=== PATIENT | female | born 1980 | race Caucasian/White ===

== ENCOUNTER 2019-01-11 05:31 | Inpatient (IN) | payer MEDICAID ==
[2019-01-11] MEDS ORDERED: Sodium Chloride 0.9% 10 ML Syringe FLUSH PRN (06:03)
[2019-01-11] MEDS ORDERED: ceFAZolin 2 GM in Premix Bag 1 BAG IV ONE (06:03)
[2019-01-11] MEDS ORDERED: Citric Acid/Sodium Citrate Solution 30 ML Cup PO ONE (06:03)
[2019-01-11] MEDS ORDERED: Sodium Chloride 0.9% 10 ML SDV IV PRN (06:03)
[2019-01-11] MEDS ORDERED: Sodium Chloride 0.9% 2.5 ML Syringe FLUSH PRN (06:03)
[2019-01-11] MEDS: Lactated Ringers 1,000 ML IV SCH ×3 (06:10→07:55)
[2019-01-11] MEDS ORDERED: Oxytocin/0.9 % Sodium Chloride 30 UNIT/500 ML BAG IV SCH (06:15)
[2019-01-11] MEDS ORDERED: ePHEDrine 50 MG/ML SDV ONE (07:21)
[2019-01-11] MEDS ORDERED: Sodium Chloride 0.9% 60 ML ONE (07:26)
[2019-01-11] MEDS ORDERED: Morphine PF 10 MG/10 ML SDV ONE (07:35)
--- NOTE | 2019-01-11 07:37 | PCM.PREANE ---
Preanesthetic Assessment - Anesthesia/Transfusion/Family Hx Anesthesia History: No Prior Anesthesia Family History of Anesthesia Reaction: No Transfusion History: No Prior Transfusion(s) Intubation History: Unknown - Review of Systems General: No Symptoms Pulmonary: No Symptoms Cardiovascular: No Symptoms Gastrointestinal: No Symptoms Neurological: No Symptoms Other: Reports: None - Physical Assessment Height: 5 ft 5 in Weight: 72.121 kg ASA Class: 2 Mental Status: Alert & Oriented x3 Airway Class: Mallampati = 2 Dentition: Reports: Normal Dentition, Broken Tooth/Teeth (upper left x1) Thyro-Mental Finger Breadths: 3 Mouth Opening Finger Breadths: 3 ROM/Head Extension: Full Lungs: Clear to Auscultation, Normal Respiratory Effort Cardiovascular: Regular Rate, Regular Rhythm - Lab Values: Laboratory Last Values WBC 5.82 K/uL (4.0-11.0) 01/11/19 05:50 RBC 3.96 M/uL (4.30-5.90) L 01/11/19 05:50 Hgb 12.0 g/dL (12.0-16.0) 01/11/19 05:50 Hct 35.6 % (36.0-46.0) L 01/11/19 05:50 MCV 89.9 fL (80.0-98.0) 01/11/19 05:50 MCH 30.3 pg (27.0-32.0) 01/11/19 05:50 MCHC 33.7 g/dL (31.0-37.0) 01/11/19 05:50 RDW Std Deviation 43.0 fl (28.0-62.0) 01/11/19 05:50 RDW Coeff of Mark 13 % (11.0-15.0) 01/11/19 05:50 Plt Count 222 K/uL (150-400) 01/11/19 05:50 MPV 10.10 fL (7.40-12.00) 01/11/19 05:50 Nucleated RBC % 0.0 /100WBC 01/11/19 05:50 Nucleated RBCs # 0 K/uL 01/11/19 05:50 Blood Type O POSITIVE 01/11/19 05:50 Antibody Screen NEGATIVE 01/11/19 05:50 - Allergies Allergies/Adverse Reactions: Allergies Allergy/AdvReac Type Severity Reaction Status Date / Time No Known Allergies Allergy Verified 01/05/19 10:00 - Blood Blood Available: No - Anesthesia Plan Pre-Op Medication Ordered: None - Acknowledgements Anesthesia Type Planned: Spinal (general anesthesia back-up plan) Pt an Appropriate Candidate for the Planned Anesthesia: Yes Alternatives and Risks of Anesthesia Discussed w Pt/Guardian: Yes Pt/Guardian Understands and Agrees with Anesthesia Plan: Yes PreAnesthesia Questionnaire - Past Health History Medical/Surgical History: Denies Medical/Surgical History HEENT History: Reports: Other (See Below) Other HEENT History: wears glasses/contacts Cardiovascular History: Reports: Other (See Below) Other Cardiovascular History: HTN in the past Respiratory History: Reports: None Gastrointestinal History: Reports: None Genitourinary History: Reports: None 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: Musculoskeletal History: Reports: None Neurological History: Reports: None Psychiatric History: Reports: Depression Endocrine/Metabolic History: Reports: None Hematologic History: Reports: None Immunologic History: Reports: None Oncologic (Cancer) History: Reports: None Dermatologic History: Reports: None - Past Surgical History Head Surgeries/Procedures: Reports: None HEENT Surgical History: Reports: None Cardiovascular Surgical History: Reports: None Respiratory Surgical History: Reports: None GI Surgical History: Reports: None Female Surgical History: Reports: None Endocrine Surgical History: Reports: None Neurological Surgical History: Reports: None Musculoskeletal Surgical History: Reports: None Oncologic Surgical History: Reports: None Dermatological Surgical History: Reports: None - SUBSTANCE USE Smoking Status *Q: Former Smoker Tobacco Use Within Last Twelve Months: Cigarettes Second Hand Smoke Exposure: No Recreational Drug Use History: No - HOME MEDS Home Medications: Home Meds Aspirin [Low Dose Aspirin EC] 81 mg PO DAILY 01/05/19 [History] Pnv No.95/Ferrous Fum/Folic AC [ Vitamin Tablet] 1 tab PO DAILY [History] - CURRENT (IN HOUSE) MEDS Current Meds: Current Medications Lactated Ringer's (Ringers, Lactated) 1,000 mls @ 500 mls/hr IV BOLUS JUJU Last Admin: 01/11/19 06:53 Dose: 500 mls/hr Oxytocin/Sodium Chloride (Oxytocin 30 Unit/500 Ml-Ns) 30 unit in 500 mls @ 250 mls/hr IV TITRATE JUJU Sodium Chloride (Saline Flush) 10 ml FLUSH ASDIRECTED PRN PRN Reason: Keep Vein Open Sodium Chloride (Saline Flush) 2.5 ml FLUSH ASDIRECTED PRN PRN Reason: Keep Vein Open Sodium Chloride (Normal Saline) 10 ml IV ASDIRECTED PRN PRN Reason: IV Use Discontinued Medications Citric Acid/Sodium Citrate (Bicitra Solution) 30 ml PO ONETIME ONE Stop: 01/11/19 06:04 Ephedrine Sulfate (Ephedrine Sulfate) Confirm Administered Dose 50 mg .ROUTE .STK-MED ONE Stop: 01/11/19 07:22 Cefazolin Sodium/Dextrose 2 gm (/ Premix) 50 mls @ 100 mls/hr IV ONETIME ONE Stop: 01/11/19 06:32 Sodium Chloride (Normal Saline) Confirm Administered Dose 60 mls @ as directed .ROUTE .STK-MED ONE Stop: 01/11/19 07:27
[2019-01-11] MEDS ORDERED: Octyl 2-Cyanoacrylate 1 Tube ONE (08:38)
[2019-01-11] MEDS ORDERED: Acetaminophen/oxyCODONE 325-5 MG Tab PO PRN ×2 (08:57→09:12)
[2019-01-11] MEDS ORDERED: diphenhydrAMINE 50 MG/ML SDV IVPUSH PRN ×2 (08:57→09:12)
[2019-01-11] MEDS ORDERED: Nalbuphine 10 MG/1 ML Vial IVPUSH PRN (08:57)
[2019-01-11] MEDS ORDERED: fentaNYL 100 MCG/2 ML SDV IVPUSH PRN ×2 (08:57→12:26)
[2019-01-11] MEDS ORDERED: Ondansetron 4 MG/2 ML SDV IVPUSH PRN ×2 (08:57→09:12)
[2019-01-11] MEDS ORDERED: Naloxone 0.4 MG/ML Syringe IVPUSH PRN (08:57)
[2019-01-11] MEDS ORDERED: Lanolin 100% Cream 7 GM Tube TOP PRN (09:12)
[2019-01-11] MEDS ORDERED: Bisacodyl 10 MG Supp RECTAL PRN (09:12)
[2019-01-11] MEDS ORDERED: Lactated Ringers 1,000 ML IV SCH (09:15)
--- NOTE | 2019-01-11 09:17 | PCM.OPNOTE ---
- General Post-Op/Procedure Note Date of Surgery/Procedure: 01/11/19 Operative Procedure(s): Primary Lower transverse Findings: Live male delivered at 821am , 9/9 weight; 2790g Posterior placenta previa Pre Op Diagnosis: 38yo Multipara at 37w4d. Posterior Placenta previa Post-Op Diagnosis: same Anesthesia Technique: Epidural Primary Surgeon: Lisa Addison Secondary Surgeon: Marley Bradshaw Pathology: Placenta Fluid Replacement, Intraop: 1,400 Output, Urine Amount: 125 EBL in mLs: 750 Complications: None Condition: Good
[2019-01-11] MEDS: Ketorolac 30 MG/ML SDV IVPUSH SCH ×3 (09:26→21:34)
--- NOTE | 2019-01-11 09:52 | PCM.POSTAN ---
POST ANESTHESIA ASSESSMENT - MENTAL STATUS Mental Status: Alert - VITAL SIGNS Vital Signs: Last Vital Signs Temp 35.9 C 01/11/19 09:03 Pulse 88 01/11/19 09:41 Resp 16 01/11/19 09:41 BP 122/59 L 01/11/19 09:41 Pulse Ox 99 01/11/19 09:41 - RESPIRATORY Respiratory Status: Respiratory Rate WNL - CARDIOVASCULAR CV Status: Pulse Rate WNL - GASTROINTESTINAL GI Status: No Symptoms - POST OP HYDRATION Hydration Status: Adequate & Stable
--- NOTE | 2019-01-11 10:47 | OR ---
SURGEON: CARMEN TANG DATE OF PROCEDURE: 01/11/2019 PREOPERATIVE DIAGNOSIS: A 38-year-old multipara at 37 weeks 4 days with posterior placenta previa. POSTOPERATIVE DIAGNOSIS: A 38-year-old multipara at 37 weeks 4 days with posterior placenta previa. PROCEDURE: Primary lower transverse section. ANAESTHESIA: Spinal ESTIMATED BLOOD LOSS: 750. IV FLUIDS: 1400. URINE OUTPUT: 125. NOTES AND FINDING: A live male delivered at 8:21 a.m. score 9 and 9. Weight is 2790 g. BRIEF HISTORY: She is 37 weeks 4 days, multipara, posterior placenta previa, counseled for C- section. She was explained the risks, benefits, and alternatives, and decided to proceed. DESCRIPTION OF PROCEDURE: The patient was taken to the operating room , spinal anesthesia was given without difficulty. She was prepared and draped in the dorsal supine position with a leftward tilt. A Pfannenstiel skin incision was made with a scalpel and carried down to the fascia with the Bovie. The fascia was incised and extended upward and laterally. Fascia was from the rectus muscle superiorly and inferiorly. Rectus muscle was in the midline at the raphe and the peritoneum was entered in bluntly. The Leonard retractor was placed in to expose lower uterine segment. The lower uterine incision was made. The head was in cephalic position, was brought out with pressure on the abdomen. The cord was clamped and cut. was handed over to the awaiting product safety administrator. The placenta was delivered without any difficulty. The uterine incision was closed in 2 layers, first layer with 0 Vicryl, second layer with 0 Monocryl. The peritoneum was closed with 2-0 Vicryl. The fascia was closed with 0 Vicryl. The skin was closed with 3-0 Monocryl on a Milton needle. All instrument and pad counts were correct x2. JOHANN / NORAH /[id number] FREDY
[2019-01-11] MEDS: HYDROmorphone 2 MG/ML Syringe IVPUSH PRN ×2 (14:20→18:12)
[2019-01-11] MEDS: Acetaminophen/oxyCODONE 325-5 MG Tab PO PRN (19:48)
[2019-01-11] MEDS: Docusate Sodium 100 MG Cap PO SCH (21:35)
[2019-01-12] MEDS: Acetaminophen/oxyCODONE 325-5 MG Tab PO PRN ×5 (00:14→23:41)
[2019-01-12] MEDS: Ketorolac 30 MG/ML SDV IVPUSH SCH ×2 (03:30→10:14)
--- NOTE | 2019-01-12 09:14 | PCM48HPAN ---
Post Anesthesia Note - EVALUATION WITHIN 48HRS OF ANESTHETIC Vital Signs in Normal Range: Yes Patient Participated in Evaluation: Yes Respiratory Function Stable: Yes Airway Patent: Yes Cardiovascular Function Stable: Yes Hydration Status Stable: Yes Pain Control Satisfactory: Yes Nausea and Vomiting Control Satisfactory: Yes Mental Status Recovered: Yes Vital Signs: Last Vital Signs Temp 36.4 C 01/12/19 06:00 Pulse 78 01/12/19 07:00 Resp 14 01/12/19 07:00 BP 103/70 01/12/19 06:00 Pulse Ox 94 L 01/12/19 07:00 - COMMENTS/OBSERVATIONS Free Text/Narrative:: Denies any problems at this time.
[2019-01-12] MEDS: Docusate Sodium 100 MG Cap PO SCH ×2 (09:21→20:49)
[2019-01-12] MEDS: Ibuprofen 800 MG Tab PO PRN ×2 (10:11→18:19)
--- NOTE | 2019-01-12 12:48 | PCM.PNPP ---
- General Info Date of Service: 01/12/19 Subjective Update: 38yo P4 POD 1, s/p primary for placenta previa Ambulating , voiding and tolerating regular diet Functional Status: Reports: Pain Controlled, Tolerating Diet, Ambulating, Urinating - Review of Systems General: Reports: No Symptoms HEENT: Reports: No Symptoms Pulmonary: Reports: No Symptoms Cardiovascular: Reports: No Symptoms Gastrointestinal: Reports: No Symptoms Genitourinary: Reports: No Symptoms Musculoskeletal: Reports: No Symptoms Skin: Reports: No Symptoms Neurological: Reports: No Symptoms Psychiatric: Reports: No Symptoms - General Info Date of Service: 01/12/19 - Patient Data Vital Signs - Most Recent: Last Vital Signs Temp 36.6 C 01/12/19 08:00 Pulse 84 01/12/19 09:00 Resp 18 01/12/19 09:00 BP 116/50 L 01/12/19 08:00 Pulse Ox 99 01/12/19 09:00 Weight - Most Recent: 72.121 kg I&O - Last 24 Hours: Intake & Output 01/11/19 01/12/19 01/12/19 22:59 06:59 14:59 Intake Total 550 300 Output Total 1900 1100 700 Balance -1900 -550 -400 Lab Results - Last 24 Hours: Laboratory Results - last 24 hr 01/12/19 Range/Units 06:49 Hgb 9.8 L (12.0-16.0) g/dL Hct 29.5 L (36.0-46.0) % Med Orders - Current: Current Medications Bisacodyl (Dulcolax) 10 mg RECTAL ONETIME PRN PRN Reason: Constipation Diphenhydramine HCl (Benadryl) 25 mg IVPUSH Q6H PRN PRN Reason: Itching or Nausea Docusate Sodium (Colace) 100 mg PO BID [facility] Last Admin: 01/12/19 09:21 Dose: 100 mg Emollient Ointment (Lansinoh Hpa) 0 gm TOP ASDIRECTED PRN PRN Reason: Sore Nipples Fentanyl (Sublimaze) 50 mcg IVPUSH Q1H PRN PRN Reason: Pain (severe 7-10) Last Admin: 01/11/19 12:46 Dose: 50 mcg Fentanyl (Sublimaze) 50 - 100 mcg IVPUSH Q5M PRN PRN Reason: Pain (severe 7-10) Hydromorphone HCl (Dilaudid) 1 mg IVPUSH Q3H PRN PRN Reason: Pain (severe 7-10) Last Admin: 01/11/19 18:12 Dose: 1 mg Lactated Ringer's (Ringers, Lactated) 1,000 mls @ 500 mls/hr IV BOLUS [facility] Last Admin: 01/11/19 07:55 Dose: 500 mls/hr Oxytocin/Sodium Chloride (Oxytocin 30 Unit/500 Ml-Ns) 30 unit in 500 mls @ 250 mls/hr IV TITRATE [facility] Lactated Ringer's (Ringers, Lactated) 1,000 mls @ 125 mls/hr IV ASDIRECTED JUJU Last Admin: 01/11/19 09:39 Dose: 125 mls/hr Ibuprofen (Motrin) 800 mg PO Q8H PRN PRN Reason: mild pain or fever Last Admin: 01/12/19 10:11 Dose: 800 mg Nalbuphine HCl (Nubain) 5 mg IVPUSH ASDIRECTED PRN PRN Reason: Itching Ondansetron HCl (Zofran) 4 mg IVPUSH Q6H PRN PRN Reason: Nausea Ondansetron HCl (Zofran) 4 mg IVPUSH Q4H PRN PRN Reason: Nausea/Vomiting Oxycodone/Acetaminophen (Percocet 325-5 Mg) 2 tab PO Q6H PRN PRN Reason: Pain (moderate 4-6) Oxycodone/Acetaminophen (Percocet 325-5 Mg) 1 tab PO Q4H PRN PRN Reason: Pain (moderate 4-6) Last Admin: 01/12/19 10:22 Dose: 1 tab Oxycodone/Acetaminophen (Percocet 325-5 Mg) 2 tab PO Q4H PRN PRN Reason: Pain (moderate 4-6) Last Admin: 01/12/19 06:10 Dose: 2 tab Sodium Chloride (Saline Flush) 10 ml FLUSH ASDIRECTED PRN PRN Reason: Keep Vein Open Sodium Chloride (Saline Flush) 2.5 ml FLUSH ASDIRECTED PRN PRN Reason: Keep Vein Open Sodium Chloride (Normal Saline) 10 ml IV ASDIRECTED PRN PRN Reason: IV Use Discontinued Medications Citric Acid/Sodium Citrate (Bicitra Solution) 30 ml PO ONETIME ONE Stop: 01/11/19 06:04 Diphenhydramine HCl (Benadryl) 25 mg IVPUSH Q4H PRN PRN Reason: Itching Stop: 01/12/19 08:57 Ephedrine Sulfate (Ephedrine Sulfate) Confirm Administered Dose 50 mg .ROUTE .STK-MED ONE Stop: 01/11/19 07:22 Cefazolin Sodium/Dextrose 2 gm (/ Premix) 50 mls @ 100 mls/hr IV ONETIME ONE Stop: 01/11/19 06:32 Sodium Chloride (Normal Saline) Confirm Administered Dose 60 mls @ as directed .ROUTE .STK-MED ONE Stop: 01/11/19 07:27 Ketorolac Tromethamine (Toradol) 30 mg IVPUSH Q6H [facility]U Stop: 01/12/19 09:16 Last Admin: 01/12/19 10:14 Dose: Not Given Morphine Sulfate (Duramorph Pf) Confirm Administered Dose 10 mg .ROUTE .STK-MED ONE Stop: 01/11/19 07:36 Naloxone HCl (Narcan) 0.1 mg IVPUSH ONETIME PRN PRN Reason: Respiratory Depression Stop: 01/12/19 08:57 Octyl Cyanoacrylate (Dermabond Advance) Confirm Administered Dose 1 applic .ROUTE .STK-MED ONE Stop: 01/11/19 08:39 - Interaction Support Person: Significant Other - Recovery Exam Fundal Tone: Firm Fundal Level: 1 Fingerbreadths Below Umbilicus Fundal Placement: Midline Lochia Amount: Scant Lochia Color: Rubra/Red Perineum Description: Intact, Minimal Bruising/Swelling Episiotomy/Laceration: None Bladder Status: Nonpalpable, Voiding Urinary Elimination: Voided - Exam General: Alert HEENT: Pupils Equal Neck: Supple Lungs: Clear to Auscultation Cardiovascular: Regular Rate, Regular Rhythm GI/Abdominal Exam: Normal Bowel Sounds Extremities: Normal Inspection Neurological: No New Focal Deficit Psy/Mental Status: Alert - Problem List & Annotations (1) delivery delivered SNOMED Code(s): 392603502 Code(s): O82 - ENCOUNTER FOR DELIVERY WITHOUT INDICATION Status: Acute Current Visit: Yes - Problem List Review Problem List Initiated/Reviewed/Updated: Yes - My Orders Last 24 Hours: My Active Orders 01/11/19 21:00 Docusate Sodium [Colace] 100 mg PO BID - Assessment Assessment:: 38yo P4 POD 1, s/p primary for placenta previa Ambulating , voiding and tolerating regular diet - Plan Plan:: Incentive spirometry Trying to - to see hospice consultant Pain control as needed Regular diet SCD
[2019-01-13] MEDS: Ibuprofen 800 MG Tab PO PRN ×2 (02:15→10:15)
[2019-01-13] MEDS: Acetaminophen/oxyCODONE 325-5 MG Tab PO PRN ×3 (03:47→12:43)
[2019-01-13] MEDS: Docusate Sodium 100 MG Cap PO SCH (10:13)
--- NOTE | 2019-01-13 11:13 | PCM.PNPP ---
- General Info Date of Service: 01/13/19 Subjective Update: 38yo P4 POD 2, s/p primary for placenta previa Ambulating , voiding and tolerating regular diet Functional Status: Reports: Pain Controlled, Tolerating Diet, Ambulating, Urinating - Review of Systems General: Reports: No Symptoms HEENT: Reports: No Symptoms Pulmonary: Reports: No Symptoms Cardiovascular: Reports: No Symptoms Gastrointestinal: Reports: No Symptoms Genitourinary: Reports: No Symptoms Musculoskeletal: Reports: No Symptoms Skin: Reports: No Symptoms Neurological: Reports: No Symptoms Psychiatric: Reports: No Symptoms - General Info Date of Service: 01/13/19 - Patient Data Vital Signs - Most Recent: Last Vital Signs Temp 36.7 C 01/13/19 08:30 Pulse 90 01/13/19 08:30 Resp 18 01/13/19 08:30 BP 115/72 01/13/19 08:30 Pulse Ox 97 01/13/19 08:30 Weight - Most Recent: 72.121 kg Lab Results - Last 24 Hours: Laboratory Results - last 24 hr 01/11/19 Range/Units 05:50 RPR Non Reactive (NonRea<1:1) Med Orders - Current: Current Medications Bisacodyl (Dulcolax) 10 mg RECTAL ONETIME PRN PRN Reason: Constipation Diphenhydramine HCl (Benadryl) 25 mg IVPUSH Q6H PRN PRN Reason: Itching or Nausea Docusate Sodium (Colace) 100 mg PO BID [facility] Last Admin: 01/13/19 10:13 Dose: 100 mg Emollient Ointment (Lansinoh Hpa) 0 gm TOP ASDIRECTED PRN PRN Reason: Sore Nipples Fentanyl (Sublimaze) 50 mcg IVPUSH Q1H PRN PRN Reason: Pain (severe 7-10) Last Admin: 01/11/19 12:46 Dose: 50 mcg Fentanyl (Sublimaze) 50 - 100 mcg IVPUSH Q5M PRN PRN Reason: Pain (severe 7-10) Hydromorphone HCl (Dilaudid) 1 mg IVPUSH Q3H PRN PRN Reason: Pain (severe 7-10) Last Admin: 01/11/19 18:12 Dose: 1 mg Lactated Ringer's (Ringers, Lactated) 1,000 mls @ 500 mls/hr IV BOLUS [facility] Last Admin: 01/11/19 07:55 Dose: 500 mls/hr Oxytocin/Sodium Chloride (Oxytocin 30 Unit/500 Ml-Ns) 30 unit in 500 mls @ 250 mls/hr IV TITRATE [facility] Lactated Ringer's (Ringers, Lactated) 1,000 mls @ 125 mls/hr IV ASDIRECTED JUJU Last Admin: 01/11/19 09:39 Dose: 125 mls/hr Ibuprofen (Motrin) 800 mg PO Q8H PRN PRN Reason: mild pain or fever Last Admin: 01/13/19 10:15 Dose: 800 mg Nalbuphine HCl (Nubain) 5 mg IVPUSH ASDIRECTED PRN PRN Reason: Itching Ondansetron HCl (Zofran) 4 mg IVPUSH Q6H PRN PRN Reason: Nausea Ondansetron HCl (Zofran) 4 mg IVPUSH Q4H PRN PRN Reason: Nausea/Vomiting Oxycodone/Acetaminophen (Percocet 325-5 Mg) 2 tab PO Q6H PRN PRN Reason: Pain (moderate 4-6) Oxycodone/Acetaminophen (Percocet 325-5 Mg) 1 tab PO Q4H PRN PRN Reason: Pain (moderate 4-6) Last Admin: 01/12/19 10:22 Dose: 1 tab Oxycodone/Acetaminophen (Percocet 325-5 Mg) 2 tab PO Q4H PRN PRN Reason: Pain (moderate 4-6) Last Admin: 01/13/19 08:27 Dose: 2 tab Sodium Chloride (Saline Flush) 10 ml FLUSH ASDIRECTED PRN PRN Reason: Keep Vein Open Sodium Chloride (Saline Flush) 2.5 ml FLUSH ASDIRECTED PRN PRN Reason: Keep Vein Open Sodium Chloride (Normal Saline) 10 ml IV ASDIRECTED PRN PRN Reason: IV Use Discontinued Medications Citric Acid/Sodium Citrate (Bicitra Solution) 30 ml PO ONETIME ONE Stop: 01/11/19 06:04 Diphenhydramine HCl (Benadryl) 25 mg IVPUSH Q4H PRN PRN Reason: Itching Stop: 01/12/19 08:57 Ephedrine Sulfate (Ephedrine Sulfate) Confirm Administered Dose 50 mg .ROUTE .STK-MED ONE Stop: 01/11/19 07:22 Cefazolin Sodium/Dextrose 2 gm (/ Premix) 50 mls @ 100 mls/hr IV ONETIME ONE Stop: 01/11/19 06:32 Sodium Chloride (Normal Saline) Confirm Administered Dose 60 mls @ as directed .ROUTE .STK-MED ONE Stop: 01/11/19 07:27 Ketorolac Tromethamine (Toradol) 30 mg IVPUSH Q6H [facility] Stop: 01/12/19 09:16 Last Admin: 01/12/19 10:14 Dose: Not Given Morphine Sulfate (Duramorph Pf) Confirm Administered Dose 10 mg .ROUTE .STK-MED ONE Stop: 01/11/19 07:36 Naloxone HCl (Narcan) 0.1 mg IVPUSH ONETIME PRN PRN Reason: Respiratory Depression Stop: 01/12/19 08:57 Octyl Cyanoacrylate (Dermabond Advance) Confirm Administered Dose 1 applic .ROUTE .STK-MED ONE Stop: 01/11/19 08:39 - Interaction Support Person: Significant Other - Recovery Exam Fundal Tone: Firm Fundal Level: 1 Fingerbreadths Below Umbilicus Fundal Placement: Midline Lochia Amount: Scant Lochia Color: Rubra/Red Perineum Description: Intact, Minimal Bruising/Swelling Episiotomy/Laceration: None Bladder Status: Voiding Urinary Elimination: Voided - Exam General: Alert HEENT: Pupils Equal Neck: Supple Lungs: Clear to Auscultation Cardiovascular: Regular Rate, Regular Rhythm GI/Abdominal Exam: Normal Bowel Sounds Extremities: Normal Inspection Neurological: No New Focal Deficit Psy/Mental Status: Alert - Problem List & Annotations (1) delivery delivered SNOMED Code(s): 558159307 Code(s): O82 - ENCOUNTER FOR DELIVERY WITHOUT INDICATION Status: Acute Current Visit: Yes - Problem List Review Problem List Initiated/Reviewed/Updated: Yes - My Orders Last 24 Hours: My Active Orders 01/13/19 Breakfast Regular Diet [DIET] - Assessment Assessment:: 38yo P4 POD 2, s/p primary for placenta previa Ambulating , voiding and tolerating regular diet - Plan Plan:: Discharge home
== END 2019-01-13 13:25 | disposition home or self-care (01) | DRG 788 ==
LOC: MW.OB 05:31
PROVIDERS: ADMIT Obstetrics & Gynecology; ATTEND Obstetrics & Gynecology
PROC: 10D00Z1 Extraction of Products of Conception, Low, Open Approach (ICD-10-PCS; principal; 2019-01-11)
DX: O44.03 Complete placenta previa NOS or without hemorrhage, third trimester (principal); Z37.0 Single live birth; Z3A.37 37 weeks gestation of pregnancy
CPT/HCPCS: 36415; 59025; 85014; 85018; 85027; 86593; 86850; 86900; 86901; 86920; 86921; 86922; 88307; A9270-GY; J1170; J1885; J2270; J3010; J7120